=== PATIENT | female | born 1970 | race Caucasian/White ===

== ENCOUNTER 2023-01-12 08:12 | Outpatient (CLI) | payer BC, SELFPAY ==
--- NOTE | 2023-01-12 08:20 | CRLHL7_ITS ---
For Patients: As a result of the Century Cures Act, medical imaging exams and procedure reports are released immediately into your electronic medical record. You may view this report before your referring provider. If you have questions, please contact your health care provider. BILATERAL SCREENING MAMMOGRAM WITH COMPUTER-AIDED DETECTION AND TOMOSYNTHESIS TECHNIQUE: CC and MLO views were obtained. These mammographic images have been obtained using full-field digital technique. These mammographic images were interpreted with the benefit of computer-aided detection. Breast Tomosynthesis was used in this interpretation. COMPARISON FILM: 06/11/21; 05/16/20; 05/30/18. FINDINGS: There are scattered areas of fibroglandular density IMPRESSION: There is no radiographic evidence for malignancy. ASSESSMENT: BI-RADS Category 1: Negative RECOMMENDATION: Routine screening mammogram in 1 year. A lay language report of this examination will be provided to the patient. James Dean M.D. Diagnostic Radiologist [email or web address] Transcribed: 2:03 p.m. DW/Dictated by: James Dean MD @ 01/12/2023 12:34:00 PM (Electronically Signed)
== END 2023-01-12 08:13 | disposition home or self-care (01) ==
PROVIDERS: PCP Internal Medicine; Visit Provider Internal Medicine
DX: Z12.31 Encounter for screening mammogram for malignant neoplasm of breast (principal)
CPT/HCPCS: 77063; 77067

== ENCOUNTER 2023-05-05 07:51 | Outpatient (CLI) | payer BC, SELFPAY | END 2023-05-05 07:52 | disposition home or self-care (01) | LOC: NFLDREF 15:17 | PROVIDERS: PCP Internal Medicine; Referring Provider Internal Medicine; Visit Provider Internal Medicine | DX: E03.9 Hypothyroidism, unspecified (principal); E78.5 Hyperlipidemia, unspecified | CPT/HCPCS: 80061; 84439; 84443 ==

== ENCOUNTER 2024-06-22 07:31 | Outpatient (CLI) | payer BC, SELFPAY ==
--- OUTSIDE RECORDS SUMMARY | 2024-06-22 12:21 | XMS_ITS | Clinical Summary ---
Author Organization [employer] [facility] Address [place], [place] [address] Care Team Providers Care Auto Clutch Rebuilder Name Role Phone Jeannette Martin MD Primary Care Provider [phone] Allergies Active Allergy Reactions Criticality Noted Date Comments Penicillins Itching 03/10/2007 Medications Medication Sig Dispensed Refills Start Date End Date Status LEVOTHYROXINE 50 MCG TAB take 1 tablet (50mcg) by oral route once daily 0 03/10/2007 Active citalopram (CELEXA) 20 mg tablet Take 1.5 tablets by mouth once daily. 0 01/01/2011 Active trimethoprim-sulfamet hoxazole, 160-800 mg, (BACTRIM DS, SEPTRA DS) tabletIndications:Dys uria Take 1 tablet by mouth 2 times daily. 6 tablet 0 03/26/2016 Active Active Problems Problem Noted Date Diagnosed Date Unspecified hypothyroidism 01/01/2011 Depression 01/01/2011 Social History Tobacco Use Types Packs/Day Years Used Date Smoking Tobacco: Never Smokeless Tobacco: Never Tobacco Cessation:Counseling Given: Yes Comments:tried socially when 17 years old Alcohol Use Standard Drinks/Week Comments Yes 2 (1 standard drink = 0.6 oz pur e alcohol) Sex and Gender Information Value Date Recorded Sex Assigned at Not on file Gender Identity Not on file Sexual Orientation Not on file Obstetrics History Para Term AB IAB SAB Ectopic Multiple Livin g Live Births 1 1 1 Date Outcome GA Total Labor Labor/2nd/3rd Weight Sex Type Anes PTL Lien A1 A5 Name Clin Term Last Filed Vital Signs Vital Sign Reading Time Taken Comments Blood Pressure 122/82 03/26/2016 7:36 AM CDT Pulse 73 03/26/2016 7:36 AM CDT Temperature 36.9 ??C (98.5 ??F) 03/26/2016 7:36 AM CD T Respiratory Rate 14 10/02/2015 2:04 PM 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 INSTALLER Oxygen Saturation 99% 03/26/2016 7:36 AM CDT Inhaled Oxygen Concentration - - Weight 92.4 kg (203 lb 9.6 oz) 03/26/2016 7:36 A M CDT Height 169 cm (5' 6.54) 03/26/2016 7:36 AM CDT Body Mass Index 32.34 03/26/2016 7:36 AM CDT Plan of Treatment Health Maintenance Due Date Last Done Comments Tdap 1981 Depression screening for age 12+ 1982 HIV for age 15-65 1985 Hepatitis C screening for ag e 18-79 1988 Tetanus booster 1990 Colonoscopy through age 75 2015 Lipids for age 45-75 2015 Mammogram for age 45-75 2015 BMI (ht and wt on same day) for age 18+ 03/26/2017 03/26/2016 Zoster (shingles) series for age 50+ (1 of 2) 2020 Pap test for age 21-65 11/14/2021 , 11/14/2018 COVID-19 vaccine series (2022-24 season) 2023 Influenza for age 50-64 06/24/2024 Pneumococcal series for age 6-64 Aged Out No longer eligible b ased on patient's age to complete this topic Procedures Procedure Name Priority Date/Time Associated Diagnosis Comments OFFICE SERVICES CLERK THIN PREP PAP SCREEN IMAGED Routine 11/14/2018 12:00 PM ELECTRONICS INSTALLER from Last 3 Months or Most Recently Relevant to Health Maintenance Results * OFFICE SERVICES CLERK THIN PREP PAP SCREEN IMAGED (11/14/2018 12:00 PM ELECTRONICS INSTALLER) Case Report Gynecologic Cytology Report ? Case: [id number] ? Authorizing Provider: ??Alice Antonio PA-C ?Collected: ? 11/14/2018 1200 ? First Screen: ?Clarence Blankenship ?Received: ?11/16/2018 1004 ? Specimen: ?OFFICE SERVICES CLERK ThinPrep Vial Screening, Cervical/Vaginal ? 11/27/2018 2:29 PM [facility] INTERPRETATION/ RESULT NEGATIVE FOR INTRAEPITHELIAL LESION OR MALIGNANCY (NIL) (none) 11/27/2018 2:29 PM [facility] IMEN ADEQUACY Satisfactory for evaluation Endocervical component present 11/27/2018 2:29 PM [facility] HPV REQUEST HPV and PAP 11/27/2018 2:29 PM ELECTRONICS INSTALLER [facility] Date of LMP 11/04/2018 11/27/2018 2:29 PM [facility] Last Pap Date 08/06/2013 11/27/2018 2:29 PM [facility] Last Pap Result NIL 9 2:29 PM [facility] Comment:neg HPV Automated Review Successful 11/27/2018 2:29 PM [facility] Comment:Specimen processed s uccessfully by automated brineyard supervisor device, ThinPrep Imaging System, [employer] ANCILLARY TESTING OFFICE SERVICES CLERK HPV Ordered, Please see separate report 11/27/2018 2:29 PM [facility] Note The pap test is a screening technique, not a diagnostic procedure. ??It is used primarily to screen for squamous cancers and precursor lesions. ??Published studies have shown that it is subject to both false negative and false positive results. ??The pap test should not be used as the sole means to diagnose or exclude pre-malignant and malignant lesions. Cytology is screened and interpreted at [facility], Central Laboratory - [address], [place] [address] and [facility] - [address]; [place] [address] and [facility] - [address]; [place] [address] and [facility] [address]; [place] [address] 11/27/2018 2:29 PM ELECTRONICS INSTALLER [facility]AL [facility] Other (Cervical/Vagina l) 11/14/2018 12:00 PM ELECTRONICS INSTALLER 11/16/2018 10:04 AM ELECTRONICS INSTALLER January Marisela [facility] PATH[facility]/CYTOLOGY [facility] [address] [place] [address], from Last 3 Months or Most Recently Relevant to Health Maintenance Care Teams Auto Clutch Rebuilder Relationship Specialty Start Date End Date Jeannette Martin MD [address] [place], [place] [id number] PCP - General Internal Medicine 12/17/15
== END 2024-06-22 07:32 | disposition home or self-care (01) ==
LOC: NFLDREF 12:19
PROVIDERS: PCP Internal Medicine; Referring Provider Internal Medicine; Visit Provider Internal Medicine
DX: E78.5 Hyperlipidemia, unspecified (principal); E03.9 Hypothyroidism, unspecified
CPT/HCPCS: 80061; 84443

== ENCOUNTER 2024-07-12 07:58 | Outpatient (CLI) | payer BC, SELFPAY ==
--- OUTSIDE RECORDS SUMMARY | 2024-07-12 08:01 | XMS_ITS | Clinical Summary ---
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 Name Role Phone Jeannette Martin MD Primary Care Provider +1- [phone] Allergies Active Allergy Reactions Criticality Noted Date [...] T Respiratory Rate 14 10/02/2015 2:04 PM [facility] Oxygen Saturation 99% 03/26/2016 7:36 AM CDT [...] , 11/14/2018 COVID-19 vaccine series (2022-24 season) 2024 Influenza for age 50-64 06/24/2024 Pneumococcal series for age 6-64 Aged Out No longer eligible b ased on patient's age to complete this topic Procedures Procedure Name Priority Date/Time Associated Diagnosis Comments COW TESTER THIN PREP PAP SCREEN IMAGED Routine 11/14/2018 12:00 PM [facility] from Last 3 Months or Most Recently Relevant to Health Maintenance Results * COW TESTER THIN PREP PAP SCREEN IMAGED (11/14/2018 12:00 PM [facility]) Case Report Gynecologic Cytology Report ? Case: [id number] ? Authorizing Provider: ??Alice Antonio PA-C ?Collected: ? 11/14/2018 1200 ? First Screen: ?Clarence Blankenship ?Received: ?11/16/2018 1004 ? Specimen: ?COW TESTER ThinPrep Vial Screening, Cervical/Vaginal ? 11/27/2018 2:29 PM [facility] INTERPRETATION/ RESULT NEGATIVE FOR INTRAEPITHELIAL LESION OR MALIGNANCY (NIL) (none) 11/27/2018 2:29 PM [facility] IMEN ADEQUACY Satisfactory for evaluation Endocervical component present 11/27/2018 2:29 PM [facility] HPV REQUEST HPV and PAP 11/27/2018 2:29 PM LAB [facility] Date of LMP 11/04/2018 11/27/2018 2:29 PM [facility] Last Pap Date 08/06/2013 11/27/2018 2:29 PM [facility] Last Pap Result NIL 9 2:29 PM [facility] Comment:neg HPV Automated Review Successful 11/27/2018 2:29 PM [facility] Comment:Specimen processed s uccessfully by automated color control supervisor device, ThinPrep Imaging System, [employer] ANCILLARY TESTING COW TESTER HPV Ordered, Please see separate report 11/27/2018 2:29 PM [facility] Note The pap test is a [...] lesions. Cytology is screened and interpreted at [facility], Central Laboratory - [address], [place] [address] and [facility] - [address]; [place] [address] and [facility] - [address]; [place] [address] and [facility] [address]; [place] [address] 11/27/2018 2:29 PM LAB [facility] ENTRAL LABORATORY Other (Cervical/Vagina l) 11/14/2018 12:00 PM [facility] 11/16/2018 10:04 AM LAB [facility] January Marisela BRODERICK PATHOLOGY/CYTOLOGY [facility] [address] [place] [address], from Last 3 Months or Most Recently Relevant to Health Maintenance Care Teams Wafer Production Lead Worker Relationship Specialty Start Date End Date Jeannette Martin MD [address] [place], [place] [phone] PCP - General Internal Medicine 12/17/15
--- NOTE | 2024-07-12 08:15 | CRLHL7_ITS ---
For Patients: As a result of the Century Cures Act, medical imaging exams and procedure reports are released immediately into your electronic medical record. You may view this report before your referring provider. If you have questions, please contact your health care provider. BILATERAL SCREENING MAMMOGRAM WITH COMPUTER-AIDED DETECTION AND TOMOSYNTHESIS TECHNIQUE: CC and MLO views were obtained. These mammographic images have been obtained using full-field digital technique. These mammographic images were interpreted with the benefit of computer-aided detection. Breast Tomosynthesis was used in this interpretation. COMPARISON FILM: 01/12/23, 06/11/21, 05/16/20. FINDINGS: There are scattered areas of fibroglandular density. IMPRESSION: There is no radiographic evidence for malignancy. ASSESSMENT: BI-RADS Category 1: Negative RECOMMENDATION: Routine screening mammogram in 1 year. A lay language report of this examination will be provided to the patient. James Dean M.D. Diagnostic Radiologist [email or web address] SP/Dictated by: James Dean MD @ 07/12/2024 11:52:00 AM (Electronically Signed)
== END 2024-07-12 07:59 | disposition home or self-care (01) ==
LOC: MAMMO 07:59
PROVIDERS: PCP Internal Medicine; Visit Provider Internal Medicine
DX: Z12.31 Encounter for screening mammogram for malignant neoplasm of breast (principal)
CPT/HCPCS: 77063; 77067

== ENCOUNTER 2025-10-10 08:02 | Outpatient (CLI) | payer BC, SELFPAY | END 2025-10-10 08:03 | disposition home or self-care (01) | LOC: NFLDREF 10-14 13:32 | PROVIDERS: PCP Internal Medicine; Referring Provider Internal Medicine; Visit Provider Internal Medicine | DX: E03.9 Hypothyroidism, unspecified (principal); E78.5 Hyperlipidemia, unspecified | CPT/HCPCS: 80061; 84439; 84443 ==